=== PATIENT | female | born 1945 | race African-American/Black ===

== ENCOUNTER 2022-06-19 12:15 | Inpatient (IN) | payer OTHER, MEDICAID ==
[2022-06-19] MEDS ORDERED: FENTANYL 50 MCG/ML 1 ML VIAL ONE (12:17)
[2022-06-19] MEDS ORDERED: Fentanyl CADD 100 ML IV SCH ×2 (12:45→15:00)
[2022-06-19 12:58] LABS: Actual Bicarbonate (HCO3a) 18.9 mEq/L (22-28); Analyzer IN Cardio ER; Base Excess (BEa) -8.3 mEq/L (-2.0 to +3.0); CO2 Tension 45.9 mmHg (35.0-45.0); Calcium, Ionized (arterial) 1.12 mmol/L (1.12-1.30); Carboxyhemoglobin (COHb) 0.3 gm% (0.0-3.0); Hemoglobin (Hb) 10.3 g/dL (12.0-16.0); O2 Tension (PaO2), arterial 92.7 mmHg (> 70.0); pH, Arterial 7.23 (7.35-7.45)
[2022-06-19 13:04] LABS: Potassium - ABG Lab 6.77 mmol/L (3.70-5.30)
[2022-06-19 13:05] LABS: ALV-art Gradient 206.425 mmHg (0-20); Puncture Site LRA
[2022-06-19] MEDS ORDERED: Sodium Bicarb 50 MEQ/50 ML VIAL ONE (13:23)
[2022-06-19] MEDS ORDERED: Piperacillin/Tazobactam 3.375 GM VIAL ONE ×2 (13:23→13:50)
[2022-06-19 13:31] LABS: Bacteria/HPF 4+ HPF (None Seen); Bilirubin Negative (Negative); Blood, Urine Trace (Negative); Clarity Extra Turbid (Clear); Glucose, Urine (Dipstick) Normal (Negative); Ketone, Urine Negative (Negative); Leukocyte 500 Leu/uL (Negative); Nitrite Negative (Negative); Protein, Urine (Dipstick) 20 mg/dL (Neg-Trace); Specific Gravity, Urine 1.013 (1.002-1.036); Squamous Epithelial 0-3 HPF (0-3); Urobilinogen Normal mg/dL (Less than 2); WBC/HPF Greater than 50 HPF (0-3); pH, Urine 5.5 (5.0-9.0)
[2022-06-19] MEDS ORDERED: Acetaminophen 650 MG Suppository PR PRN (13:34)
[2022-06-19] MEDS ORDERED: Ondansetron PF 4 MG/2 ML Vial IVP PRN (13:34)
[2022-06-19] MEDS ORDERED: Acetaminophen 325 MG TAB PO PRN (13:34)
[2022-06-19] MEDS ORDERED: Senokot S 8.6-50 MG TAB PO PRN (13:34)
[2022-06-19] MEDS ORDERED: Bisacodyl 5 MG TAB PO PRN (13:34)
[2022-06-19] MEDS ORDERED: Ventilator Sedation Protocol 1 EACH FS SCH (13:39)
[2022-06-19] MEDS ORDERED: HumaLOG 300 UNITS/3 ML VIAL SC PRN ×2 (13:43)
[2022-06-19] MEDS ORDERED: Dextrose 50% Abboject 50 ML SYRINGE SLOW IVP PRN (13:43)
[2022-06-19] MEDS ORDERED: Dextrose 5% in Water 1,000 ML IV PRN (13:43)
[2022-06-19 13:53] LABS: Band 3 % (5-11); Eosinophils 1 % (0-10); Hemoglobin 9.5 g/dL (12.0-16.0); Large Platelets SLIGHT; Lymphocytes 40 % (21-51); MDiff Complete? YES; Macrocytosis MODERATE=16-30 cells (100X) (0-5/hpf); Mean Corpuscular HGB CONC 31.7 g/dL (32.0-36.0); Mean Corpuscular Hemoglobin 38.2 pg (27.0-31.0); Mean Platelet Volume 11.4 fL (7.4-10.4); Monocytes 2 % (0-10); Neutrophil 54 % (42-75); Platelet Count 117 10x3/uL (130-400); Platelet Morphology Comment Appears Decreased; Polychromasia SLIGHT = 2-3 cells (100X) (0-2/hpf); RBC Distribution Width 14.6 % (11.5-14.5); Red Blood Cell (RBC) Count 2.48 mill/uL (4.20-5.40); White Blood Cell (WBC) Count 17.3 10x3/uL (4.8-10.8)
[2022-06-19] MEDS ORDERED: Sodium Chloride 0.9% 500 ML IV SCH (14:00)
[2022-06-19 14:15] LABS: Albumin 3.3 g/dL (3.4-4.8)
[2022-06-19 14:17] LABS: Calcium 8.8 mg/dL (7.8-10.44); Chloride 104 mmol/L (98-107); Sodium 138 mmol/L (136-145)
[2022-06-19 14:18] LABS: Globulin 4.6 g/dL (2.4-3.5); Glucose 193 mg/dL (83-110); Protein, Total 7.9 g/dL (5.8-8.1)
[2022-06-19 14:19] LABS: Anion Gap 26 mmol/L (10-20); Carbon Dioxide 15 mmol/L (23-31)
[2022-06-19 14:20] LABS: Bilirubin, Total 0.6 mg/dL (0.2-1.2)
[2022-06-19 14:21] LABS: Alkaline Phosphatase 67 U/L (40-110); Calc. Creatinine Clearance 0 mL/min (70-130); Estimated GFR 12
[2022-06-19 14:22] LABS: BUN (Urea Nitrogen) 47 mg/dL (9.8-20.1)
[2022-06-19 14:23] LABS: AST (SGOT) 387 U/L (5-34)
[2022-06-19 14:24] LABS: ALT (SGPT) 226 U/L (8-55)
[2022-06-19] MEDS ORDERED: Sodium Bicarb 50 MEQ/50 ML VIAL IVP SCH (14:30)
[2022-06-19 14:54] LABS: HBSAg Index 0.27 S/CO (0-0.99); Hep B Surf Ag Non-Reactive S/CO (NonReactive)
[2022-06-19] MEDS ORDERED: Propofol 1,000 MG/100 ML VIAL IV PRN (15:00)
[2022-06-19] MEDS ORDERED: Morphine 2 MG/ML VIAL SLOW IVP PRN (15:00)
[2022-06-19] MEDS ORDERED: Lorazepam 2 MG/ML VIAL SLOW IVP PRN (15:00)
[2022-06-19] MEDS ORDERED: Propofol BOLUS 1,000 MG/100 ML VIAL IV PRN (15:00)
[2022-06-19] MEDS ORDERED: DISCONTINUE PREVIOUS NARCOTIC PAIN MEDICATIONS AND BENZODIAZEPINES FS SCH (15:00)
[2022-06-19] MEDS ORDERED: Fentanyl BOLUS 250 ML IVPB PRN (15:00)
[2022-06-19 15:09] LABS: HBSAB Concentration 765.11 mIU/mL
[2022-06-19 15:10] LABS: Hep B Surf AB Reactive (NonReactive)
[2022-06-19 15:15] LABS: SARS-CoV-2 NAA Rapid Test Not Detected (NotDetected)
[2022-06-19] MEDS ORDERED: Heparin 10,000 UNITS/ 10 ML VIAL ONE (15:33)
[2022-06-19 16:15] LABS: Actual Bicarbonate (HCO3v) 19 mEq/L (22-28); Base Excess -5.9 mEq/L (-2.0 to +3.0); Calcium, Ionized (venous) 1.11 mmol/L (1.16-1.32); Chloride (VBG) 102 mmol/L (98-106); Potassium (VBG) 5.91 mmol/L (3.70-5.30); Sodium 141.8 mmol/L (133-146); pH (venous) 7.36 (7.32-7.43)
[2022-06-19 16:40] LABS: Lactic Acid 8.8 mmol/L (0.5-2.2)
[2022-06-19 16:40] LABS: Hep B Core Total Index 6.26 S/CO (0-0.79)
[2022-06-19 16:41] LABS: Hep C Index 0.85 S/CO (0-0.79)
[2022-06-19 16:42] LABS: Hep C IgG Ab Reflex HepC Qnt (NonReactive)
[2022-06-19 16:43] LABS: Hep B Core Total Ab Reactive (NonReactive)
[2022-06-19 16:50] LABS: ALT (SGPT) 212 U/L (8-55); AST (SGOT) 359 U/L (5-34); Albumin 3.4 g/dL (3.4-4.8); Alkaline Phosphatase 63 U/L (40-110); Anion Gap 23 mmol/L (10-20); BUN (Urea Nitrogen) 49 mg/dL (9.8-20.1); Bilirubin, Total 0.5 mg/dL (0.2-1.2); Calcium 8.8 mg/dL (7.8-10.44); Carbon Dioxide 18 mmol/L (23-31); Chloride 106 mmol/L (98-107); Glucose 164 mg/dL (83-110); Protein, Total 7.4 g/dL (5.8-8.1); Sodium 141 mmol/L (136-145)
[2022-06-19 17:05] LABS: Calc. Creatinine Clearance 29 mL/min (70-130); Estimated GFR 13
[2022-06-19] MEDS ORDERED: Piperacillin/Tazobactam 3.375 GM in Sodium Chloride 0.9% 100 ML IVPB SCH ×3 (17:45→23:00)
[2022-06-19] MEDS ORDERED: Vancomycin Dialysis Sliding Scale (Wt > 99) FS SCH ×2 (18:00)
[2022-06-19] MEDS: Sodium Chloride 0.9% 1,000 ML IV SCH ×2 (18:00→21:25)
[2022-06-19] MEDS: Piperacillin/Tazobactam 3.375 GM in Sodium Chloride 0.9% 100 ML IVPB SCH (18:12)
[2022-06-19 19:21] LABS: Troponin I 0.743 ng/mL (< 0.028)
[2022-06-19] MEDS ORDERED: VANCOMYCIN 2 GRAM/500 ML BAG 2 GM in Premix Bag 1 BAG IVPB SCH (20:00)
[2022-06-19] MEDS ORDERED: Sodium Chloride 0.9% 1,000 ML IV SCH (20:45)
[2022-06-19 23:33] LABS: Lactic Acid 3.9 mmol/L (0.5-2.2)
[2022-06-20 01:20] LABS: Troponin I 0.814 ng/mL (< 0.028)
[2022-06-20 02:58] VITALS: BP 138/85
[2022-06-20 04:40] LABS: #Lymphocytes 1.2 thou/uL (1.20-3.40); #Neutrophils 9.7 thou/uL (1.40-6.50); %Basophils 0.2 % (0.0-1.0); %Eosinophils 0.2 % (0.0-10.0); %Lymphocytes 10.2 % (21.0-51.0); %Monocytes 8.4 % (0.0-10.0); Mean Corpuscular HGB CONC 32.7 g/dL (32.0-36.0); Mean Corpuscular Hemoglobin 37.8 pg (27.0-31.0); Mean Platelet Volume 12.4 fL (7.4-10.4); Platelet Count 96 10x3/uL (130-400); RBC Distribution Width 14.7 % (11.5-14.5); Red Blood Cell (RBC) Count 2.39 mill/uL (4.20-5.40); White Blood Cell (WBC) Count 11.9 10x3/uL (4.8-10.8)
[2022-06-20 05:01] LABS: ALT (SGPT) 165 U/L (8-55); AST (SGOT) 244 U/L (5-34); Albumin 3.1 g/dL (3.4-4.8); Alkaline Phosphatase 53 U/L (40-110); Anion Gap 18 mmol/L (10-20); BUN (Urea Nitrogen) 27 mg/dL (9.8-20.1); Bilirubin, Total 0.6 mg/dL (0.2-1.2); CRP (Inflammatory) 7.07 mg/dL (= or < 0.5); Calc. Creatinine Clearance 40 mL/min (70-130); Calcium 8.7 mg/dL (7.8-10.44); Carbon Dioxide 23 mmol/L (23-31); Chloride 104 mmol/L (98-107); Estimated GFR 19; Globulin 3.8 g/dL (2.4-3.5); Glucose 78 mg/dL (83-110); Potassium 4.6 mmol/L (3.5-5.1); Protein, Total 6.9 g/dL (5.8-8.1); Sodium 140 mmol/L (136-145)
[2022-06-20] MEDS: Piperacillin/Tazobactam 3.375 GM in Sodium Chloride 0.9% 100 ML IVPB SCH (05:06)
[2022-06-20 05:12] LABS: Phosphorus 1.1 mg/dL (2.3-4.7)
[2022-06-20] MEDS ORDERED: Sodium Phosphate 30 MMOL in Sodium Chloride 0.9% 250 ML 250 ML IVPB SCH (05:45)
[2022-06-20 07:25] LABS: Actual Bicarbonate (HCO3a) 26.3 mEq/L (22-28); Base Excess (BEa) 6.6 mEq/L (-2.0 to +3.0); Calcium, Ionized (arterial) 1.06 mmol/L (1.12-1.30); Carboxyhemoglobin (COHb) 0.3 gm% (0.0-3.0); Hemoglobin (Hb) 10.5 g/dL (12.0-16.0); O2 Tension (PaO2), arterial 91.4 mmHg (> 70.0); Potassium - ABG Lab 4.42 mmol/L (3.70-5.30)
[2022-06-20 07:30] LABS: CO2 Tension 23.1 mmHg (35.0-45.0); Puncture Site LRA; pH, Arterial 7.67 (7.35-7.45)
[2022-06-20 07:31] LABS: ALV-art Gradient 236.225 mmHg (0-20)
[2022-06-20 08:11] VITALS: TEMP 97.7
[2022-06-20] MEDS ORDERED: Pantoprazole 40 MG VIAL IVP SCH (09:00)
[2022-06-20] MEDS ORDERED: FLU VACC QS2022-23(65YR UP)/PF 240 MCG/0.7 ML SYRINGE IM ONE (09:00)
[2022-06-20] MEDS ORDERED: Vancomycin Dose by Levels Sliding Scale (Wt > 99) FS SCH (09:30)
[2022-06-20 10:03] VITALS: BMI 50.2
[2022-06-20] MEDS ORDERED: Piperacillin/Tazobactam 3.375 GM in Sodium Chloride 0.9% 100 ML IVPB SCH (14:00)
[2022-06-23 12:37] LABS: Hep C PCR-Quant HCV Not Detected IU/mL (.)
== END 2022-06-20 13:38 | disposition expired | DRG 871 ==
LOC: SUATTDRO 12:15 → ERS 12:15 → CCU 14:43
PROVIDERS: ADMIT Internal Medicine; ATTEND Internal Medicine
PROC: 5A1935Z Respiratory Ventilation, Less than 24 Consecutive Hours (ICD-10-PCS; principal; 2022-06-19)
PROC: 0BH17EZ Insertion of Endotracheal Airway into Trachea, Via Natural or Artificial Opening (ICD-10-PCS; 2022-06-19)
PROC: 0D9780Z Drainage of Stomach, Pylorus with Drainage Device, Via Natural or Artificial Opening Endoscopic (ICD-10-PCS; 2022-06-19)
PROC: 02HV33Z Insertion of Infusion Device into Superior Vena Cava, Percutaneous Approach (ICD-10-PCS; 2022-06-19)
PROC: B548ZZA Ultrasonography of Superior Vena Cava, Guidance (ICD-10-PCS; 2022-06-19)
PROC: 3E043XZ Introduction of Vasopressor into Central Vein, Percutaneous Approach (ICD-10-PCS; 2022-06-19)
PROC: 3E04329 Introduction of Other Anti-infective into Central Vein, Percutaneous Approach (ICD-10-PCS; 2022-06-19)
PROC: 4A133R1 Monitoring of Arterial Saturation, Peripheral, Percutaneous Approach (ICD-10-PCS; 2022-06-19)
DX: A41.9 Sepsis, unspecified organism (principal); I21.A1 Myocardial infarction type 2; J18.9 Pneumonia, unspecified organism; J96.21 Acute and chronic respiratory failure with hypoxia; J96.22 Acute and chronic respiratory failure with hypercapnia; E66.2 Morbid (severe) obesity with alveolar hypoventilation; I13.0 Hypertensive heart and chronic kidney disease with heart failure and stage 1 through stage 4 chronic kidney disease, or unspecified chronic kidney disease; N39.0 Urinary tract infection, site not specified; N17.9 Acute kidney failure, unspecified; N18.4 Chronic kidney disease, stage 4 (severe); E87.20 Acidosis, unspecified; Z68.43 Body mass index [BMI] 50.0-59.9, adult; Z20.822 Contact with and (suspected) exposure to COVID-19; R65.20 Severe sepsis without septic shock; E78.5 Hyperlipidemia, unspecified; Y95 Nosocomial condition; E87.5 Hyperkalemia; D63.1 Anemia in chronic kidney disease; I46.8 Cardiac arrest due to other underlying condition; Z79.899 Other long term (current) drug therapy
CPT/HCPCS: 36415; 36416; 36600; 70450; 71045; 78610; 80053; 82533; 82550; 82805; 83605; 83735; 84100; 84484; 85025; 86140; 86704; 87040; 87070; 87077; 87086; 87186; 87205; 87522; 90935; 93005; 93306; 94002; 94003; A9521; C9113; G0257; J1644; J2543; J3010; J3370; J3490; J7050; U0002